=== PATIENT | male | born 1985 | race Caucasian/White ===

== ENCOUNTER 2018-09-06 16:30 | Emergency (ER) | payer OTHER ==
[~2018-09-06] VITALS: Ht 177.8 cm; Wt 79.5 kg
[2018-09-06 16:38] VITALS: BP 135/82
[2018-09-06] MEDS ORDERED: IBUPROFEN 800 MG TABLET PO ONE (17:00)
[2018-09-06] MEDS ORDERED: CLINDAMYCIN HCL 150 MG CAPSULE PO ONE (17:00)
[2018-09-06] MEDS ORDERED: LIDOCAINE/PF 1% 2 ML VIAL IM ONE (17:15)
[2018-09-06] MEDS ORDERED: CefTRIAXone SODIUM 1 GM/VIAL IM ONE (17:15)
== END 2018-09-06 17:44 | disposition home or self-care (01) ==
LOC: EMS 16:37
DX: K04.7 Periapical abscess without sinus (principal); K02.9 Dental caries, unspecified
CPT/HCPCS: 96372; 99283; J0696; J3490